=== PATIENT | male | born 1945 | race Two or more races ===

== ENCOUNTER → 2018-05-01 | Outpatient (CLI) | payer MEDICARE, OTHER ==
[~2018-05-01] MED LIST: ATOR20TA9 PO; B COMPLEX PLUS PO; LISI-167 PO; MAG PO; ULTIMATE OMEGA PO; VITAMIN B PO; [UNRECOGNIZED DRUG - CODE] PO; [UNRECOGNIZED DRUG - OTHER] PO; [UNRECOGNIZED DRUG - OTHER] PO; [UNRECOGNIZED DRUG - OTHER] PO
[2018-05-01 10:39] LABS: BASOPHILS # (AUTO) 0.01 x10^3/uL (0-0.1); BASOPHILS % (AUTO) 0 % (0-1); EOSINOPHILS # (AUTO) 0.13 x10^3/uL (0-0.4); EOSINOPHILS % (AUTO) 3 % (1-7); LYMPHOCYTES # (AUTO) 1.01 x10^3/uL (1-3.4); LYMPHOCYTES % (AUTO) 20 % (22-44); MD NO; MEAN CORPUSCULAR HEMOGLOBIN 31.1 pg (27.5-34.5); MEAN CORPUSCULAR HGB CONC 34.2 g/dL (33.2-36.2); MEAN CORPUSCULAR VOLUME 90.9 fL (81-97); MEAN PLATELET VOLUME 7.5 fL (7.4-10.4); MONOCYTES # (AUTO) 0.55 x10^3/uL (0.2-0.8); MONOCYTES % (AUTO) 11 % (2-9); NEUTROPHILS # (AUTO) 3.34 x10^3/uL (1.8-6.8); NEUTROPHILS % (AUTO) 66 % (42-75); PLATELET COUNT 241 x10^3/uL (130-400); RED BLOOD COUNT 4.63 x10^6/uL (4.38-5.82)
[2018-05-01 10:40] LABS: MICROSCOPIC NOT IND
[2018-05-01 10:44] LABS: ALANINE AMINOTRANSFERASE 37 U/L (12-78); ANION GAP 6 mmol/L (5-15); CALCIUM 8.5 mg/dL (8.5-10.1); CHLORIDE 106 mmol/L (98-107); CREATININE 0.76 mg/dL (0.7-1.3); CULTURE INDICATED? NO
[2018-05-01 10:46] LABS: ALKALINE PHOSPHATASE 57 U/L (45-117); BILIRUBIN,TOTAL 0.4 mg/dL (0.2-1.0); TOTAL PROTEIN 6.8 g/dL (6.4-8.2)
== END | disposition home or self-care (01) ==
LOC: STAR 09:26
PROVIDERS: ATTEND Orthopaedic Surgery
DX: Z01.818 Encounter for other preprocedural examination (principal); M16.12 Unilateral primary osteoarthritis, left hip; M25.552 Pain in left hip
CPT/HCPCS: 36415; 80053; 81003; 85025; 87081; 93005

== ENCOUNTER 2018-05-12 06:34 | Inpatient (IN) | payer MEDICARE, OTHER ==
[~2018-05-12] VITALS: Ht 172.7 cm; Wt 80.7 kg
[2018-05-12] MEDS ORDERED: LACTATED RINGERS 1,000 ML IV SCH (06:57)
[2018-05-12] MEDS ORDERED: ACETAMINOPHEN 500 MG TABLET PO ONE (07:00)
[2018-05-12] MEDS ORDERED: GABAPENTIN 300 MG CAPSULE PO ONE (07:00)
[2018-05-12] MEDS ORDERED: ONDANSETRON ODT 8 MG PO ONE (07:00)
[2018-05-12] MEDS ORDERED: FAMOTIDINE 20 MG TABLET PO ONE (07:00)
[2018-05-12 07:20] VITALS: BP 127/79
[2018-05-12] MEDS ORDERED: FENTANYL PF 250 MCG/5ML ONE (08:03)
[2018-05-12] MEDS ORDERED: PROPOFOL 50 ML ONE ×2 (08:22→09:45)
[2018-05-12] MEDS ORDERED: KETOROLAC 60 MG/2 ML ONE (09:13)
[2018-05-12] MEDS ORDERED: EPINEPHRINE 1 MG/ML, 1ML ONE (09:13)
[2018-05-12] MEDS ORDERED: ROPIvacaine/PF 0.2%, 20 ML ONE (09:13)
[2018-05-12] MEDS ORDERED: TRANEXAMIC ACID 100 MG/ML, 10ML ONE (09:13)
[2018-05-12] MEDS ORDERED: SODIUM CHLORIDE 0.9% 100 ML ONE (09:13)
[2018-05-12] MEDS ORDERED: OXYcodone 5 MG/5 ML ORAL.SOL UDC PO PRN (09:30)
[2018-05-12] MEDS ORDERED: DIAZEPAM 5 MG/ML, 2ML IVPush PRN (09:30)
[2018-05-12] MEDS ORDERED: HYDROmorphone 1 MG/ML, 1ML IV PRN ×2 (09:30→11:30)
[2018-05-12] MEDS ORDERED: ONDANSETRON 2MG/ML, 2ML IV PRN ×2 (09:30→11:30)
[2018-05-12] MEDS ORDERED: LABETALOL 5MG/ML, 20ML IV PRN (09:30)
[2018-05-12] MEDS ORDERED: ONDANSETRON ODT 8 MG PO PRN (09:30)
[2018-05-12] MEDS ORDERED: MEPERIDINE/PF 25MG/0.5ML IVPush PRN (09:30)
[2018-05-12] MEDS ORDERED: PROCHLORPERAZINE 5 MG/ML, 2ML IV PRN (09:30)
[2018-05-12] MEDS ORDERED: hydrALAzine 20 MG/ML, 1ML IV PRN (09:30)
[2018-05-12] MEDS ORDERED: GLYCOPYRROLATE 0.2MG/1ML, 5ML ONE (09:45)
[2018-05-12] MEDS ORDERED: PROPOFOL 10 MG/ML, 20ML ONE (09:45)
[2018-05-12] MEDS ORDERED: NEOSTIGMINE 1 MG/ML, 10ML ONE (09:45)
[2018-05-12] MEDS ORDERED: DEXAMETHASONE 4 MG/ML, 1ML ONE (09:45)
[2018-05-12] MEDS ORDERED: SUCCINYLCHOLINE 20 MG/ML, 10ML ONE (09:45)
[2018-05-12] MEDS ORDERED: ONDANSETRON 2MG/ML, 2ML ONE (09:45)
[2018-05-12] MEDS ORDERED: ROCURONIUM 10MG/ML,5ML ONE (09:45)
[2018-05-12] MEDS ORDERED: CEFAZOLIN 1,000 MG ONE (09:45)
[2018-05-12] MEDS ORDERED: MORPHINE SULFATE 4 MG/ML, 1ML ONE (09:59)
[2018-05-12] MEDS ORDERED: FENTANYL PF 100 MCG/2ML ONE ×2 (10:02→10:12)
[2018-05-12] MEDS: D5%-0.45% NACL 1,000 ML IV SCH ×2 (11:02→19:02)
[2018-05-12] MEDS ORDERED: DIAZEPAM 5 MG TABLET ONE (11:26)
[2018-05-12] MEDS ORDERED: OXYcodone IR 5MG TABLET PO PRN (11:30)
[2018-05-12] MEDS ORDERED: PROMETHAZINE 25 MG/ML, 1ML IM PRN (11:30)
[2018-05-12] MEDS ORDERED: SENNA/DOCUSATE TABLET PO PRN (11:30)
[2018-05-12] MEDS ORDERED: MAGNESIUM HYDROXIDE 8%, 30ML UDC PO PRN (11:30)
[2018-05-12] MEDS ORDERED: ALUMINUM/MAG/SIMETHICONE 30 ML UDC PO PRN (11:30)
[2018-05-12] MEDS ORDERED: DIPHENHYDRAMINE 50 MG CAPSULE PO PRN (11:30)
[2018-05-12] MEDS ORDERED: ZOLPIDEM 5MG TABLET PO PRN (11:30)
[2018-05-12] MEDS ORDERED: DIAZEPAM 5 MG TABLET PO PRN (11:30)
[2018-05-12] MEDS ORDERED: PROMETHAZINE 12.5 MG SUPP PR PRN (11:30)
[2018-05-12] MEDS ORDERED: TRANEXAMIC ACID 1,000 MG in SODIUM CHLORIDE 0.9% 100 ML IVPB ONE (11:30)
[2018-05-12] MEDS ORDERED: BISACODYL 10 MG SUPP PR PRN (11:30)
[2018-05-12] MEDS ORDERED: ONDANSETRON 4 MG TABLET PO PRN (11:30)
[2018-05-12] MEDS ORDERED: HYDROmorphone 2 MG/ML, 1ML ONE (11:54)
[2018-05-12 14:15] VITALS: BP 105/73
[2018-05-12] MEDS: TAMSULOSIN 0.4 MG CAP.ER.24H PO SCH (14:45)
[2018-05-12] MEDS: ACETAMINOPHEN 650 MG/20.3 ML UDC PO SCH ×2 (14:46→19:43)
[2018-05-12] MEDS: CEFAZOLIN 2,000 MG in DEXTROSE 5% 50 ML IVPB SCH (18:46)
[2018-05-12] MEDS: ASPIRIN 81 MG TABLET EC PO SCH (18:46)
[2018-05-12 20:41] VITALS: BP 98/63
[2018-05-12] MEDS ORDERED: ATORVASTATIN 20 MG TABLET PO SCH (21:00)
[2018-05-12] MEDS: DOCUSATE 100 MG CAPSULE PO SCH (21:13)
[2018-05-12 23:49] VITALS: BP 102/64
[2018-05-13] MEDS: CEFAZOLIN 2,000 MG in DEXTROSE 5% 50 ML IVPB SCH (01:01)
[2018-05-13] MEDS: ACETAMINOPHEN 650 MG/20.3 ML UDC PO SCH ×2 (01:59→09:12)
[2018-05-13] MEDS: D5%-0.45% NACL 1,000 ML IV SCH (03:02)
[2018-05-13 05:23] VITALS: BP 107/62
[2018-05-13] MEDS ORDERED: DEXAMETHASONE 4 MG/ML, 1ML IVPush SCH (06:00)
[2018-05-13] MEDS: ASPIRIN 81 MG TABLET EC PO SCH (06:33)
[2018-05-13 06:58] VITALS: BP 108/62
[2018-05-13] MEDS ORDERED: MULTIVITAMINS/MINERALS TABLET PO SCH (09:00)
[2018-05-13] MEDS ORDERED: LISINOPRIL 10 MG TABLET PO SCH (09:00)
[2018-05-13] MEDS: TAMSULOSIN 0.4 MG CAP.ER.24H PO SCH (09:12)
[2018-05-13] MEDS: DOCUSATE 100 MG CAPSULE PO SCH (09:12)
[2018-05-13 11:00] VITALS: BP 100/63
[2018-05-13] MEDS ORDERED: HYDR-3307 PO (11:22)
[2018-05-13] MEDS ORDERED: TRAM50TA2 PO (11:22)
[2018-05-13] MEDS ORDERED: CELE200C PO (11:23)
[2018-05-13] MEDS ORDERED: ASPI-621 PO (11:24)
[2018-05-13] MEDS ORDERED: KETOROLAC 30 MG/1 ML IV SCH (11:30)
== END 2018-05-13 11:54 | disposition home or self-care (01) | DRG 470 ==
LOC: ORIP 06:34 → 4NOR 12:27 → DCLOUNGE 05-13 11:32
PROVIDERS: ADMIT Orthopaedic Surgery; ATTEND Orthopaedic Surgery
PROC: 0SRB06Z Replacement of Left Hip Joint with Oxidized Zirconium on Polyethylene Synthetic Substitute, Open Approach (ICD-10-PCS; principal; 2018-05-12 09:15)
DX: M16.12 Unilateral primary osteoarthritis, left hip (principal); M81.0 Age-related osteoporosis without current pathological fracture; I10 Essential (primary) hypertension; E78.5 Hyperlipidemia, unspecified; Z88.8 Allergy status to other drugs, medicaments and biological substances
CPT/HCPCS: 36415; 72170; 85014; 85018; 86850; 86900; C1713; G0378; J0171; J0690; J1100; J1170; J1885; J2405; J2704; J2710; J2795; J3010; J3490; Q0162; C1776; J0330; J7120